=== PATIENT | female | born 1980 | race Caucasian/White ===

== ENCOUNTER 2017-06-06 05:57 | Inpatient (IN) | payer OTHER ==
[~2017-06-06] VITALS: Ht 165.1 cm; Wt 110.2 kg
[2017-06-06] MEDS ORDERED: TERBUTALINE 1 MG/ML, 1ML ONE (06:40)
[2017-06-06] MEDS ORDERED: BETAMETHASONE 6 MG/ML, 5ML IM ONE ×2 (06:40→09:00)
[2017-06-06] MEDS ORDERED: LACTATED RINGERS 1,000 ML IVBOLUS ONE (07:00)
[2017-06-06] MEDS ORDERED: TERBUTALINE 1 MG/ML, 1ML IV ONE (07:00)
[2017-06-06 07:13] LABS: BASOPHILS # (AUTO) 0.02 x10^3/uL (0-0.1); BASOPHILS % (AUTO) 0 % (0-1); EOSINOPHILS # (AUTO) 0.03 x10^3/uL (0-0.4); EOSINOPHILS % (AUTO) 0 % (1-7); LYMPHOCYTES % (AUTO) 30 % (22-44); MD NO; MEAN CORPUSCULAR HEMOGLOBIN 30.7 pg (27.0-34.8); MEAN CORPUSCULAR HGB CONC 33.7 g/dL (32.4-35.8); MEAN CORPUSCULAR VOLUME 91.3 fL (80-100); MEAN PLATELET VOLUME 7.8 fL (7.4-10.4); MONOCYTES # (AUTO) 0.66 x10^3/uL (0.2-0.8); MONOCYTES % (AUTO) 5 % (2-9); NEUTROPHILS % (AUTO) 64 % (42-75); PLATELET COUNT 412 x10^3/uL (130-400); RED BLOOD COUNT 4.09 x10^6/uL (3.82-5.3); RED CELL DISTRIBUTION WIDTH 13.3 % (9.6-15.2)
[2017-06-06] MEDS ORDERED: SODIUM CITRATE/CITRIC ACID 30 ML UDC ONE (07:16)
[2017-06-06] MEDS ORDERED: METOCLOPRAMIDE 5 MG/ML, 2ML ONE ×2 (07:16→15:40)
[2017-06-06] MEDS ORDERED: OXYTOCIN 30U/ 0.9% NaCL 500ML 0 ML ONE (07:16)
[2017-06-06] MEDS ORDERED: OXYTOCIN 30U/ 0.9% NaCL 500ML 500 ML ONE (07:19)
[2017-06-06] MEDS ORDERED: NEWBORN KIT ONE (07:19)
[2017-06-06] MEDS: SODIUM CITRATE/CITRIC ACID 30 ML UDC PO SCH ×2 (07:20→18:00)
[2017-06-06] MEDS ORDERED: FENTANYL PF 100 MCG/2ML IV PRN (07:30)
[2017-06-06] MEDS ORDERED: MEPERIDINE/PF 25MG/0.5ML IVPush PRN (07:30)
[2017-06-06] MEDS ORDERED: HYDROmorphone 1 MG/ML, 1ML IV PRN (07:30)
[2017-06-06] MEDS ORDERED: EPHEDRINE 50 MG/ML, 1ML IVPush PRN (07:30)
[2017-06-06] MEDS ORDERED: PLEASE ENTER HEIGHT AND WEIGHT MC SCH (07:30)
[2017-06-06] MEDS ORDERED: OXYcodone 5 MG/5 ML ORAL.SOL UDC PO PRN (07:30)
[2017-06-06] MEDS ORDERED: MIDAZOLAM 1 MG/ML, 2ML IV PRN (07:30)
[2017-06-06] MEDS ORDERED: PROMETHAZINE 25 MG/ML, 1ML IV PRN (07:30)
[2017-06-06] MEDS ORDERED: hydrALAzine 20 MG/ML, 1ML IV PRN (07:30)
[2017-06-06] MEDS ORDERED: HYDROcodone/APAP 7.5-325MG/15ML UDC PO PRN (07:30)
[2017-06-06] MEDS ORDERED: ONDANSETRON 2MG/ML, 2ML IVPush PRN (07:30)
[2017-06-06] MEDS ORDERED: ALBUTEROL SULFATE 2.5 MG/3 ML NPPB PRN (07:30)
[2017-06-06] MEDS ORDERED: LABETALOL 5MG/ML, 20ML IV PRN (07:30)
[2017-06-06] MEDS ORDERED: OXYTOCIN 10 UNITS/ML, 1ML ONE (07:35)
[2017-06-06] MEDS ORDERED: DEXAMETHASONE 4 MG/ML, 1ML ONE (07:35)
[2017-06-06] MEDS ORDERED: CEFAZOLIN 1,000 MG ONE (07:35)
[2017-06-06] MEDS ORDERED: EPHEDRINE 50 MG/ML, 1ML ONE (07:35)
[2017-06-06] MEDS ORDERED: PHENYLEPHRINE 10 MG/ML ONE (07:36)
[2017-06-06] MEDS ORDERED: SODIUM BICARBONATE 1 MEQ/ML, 50ML VIAL ONE (07:36)
[2017-06-06] MEDS ORDERED: ONDANSETRON 2MG/ML, 2ML ONE (07:36)
[2017-06-06] MEDS ORDERED: FENTANYL PF 100 MCG/2ML ONE ×3 (07:36→11:25)
[2017-06-06] MEDS ORDERED: KETOROLAC 30 MG/1 ML ONE (07:36)
[2017-06-06 08:52] LABS: ALANINE AMINOTRANSFERASE 17 U/L (12-78); ALBUMIN 1.9 g/dL (3.4-5.0); ANION GAP 11 mmol/L (5-15); CALCIUM 7.7 mg/dL (8.5-10.1); CHLORIDE 109 mmol/L (98-107)
[2017-06-06 08:55] LABS: ALKALINE PHOSPHATASE 64 U/L (45-117); BILIRUBIN,TOTAL 0.1 mg/dL (0.2-1.0); TOTAL PROTEIN 4.9 g/dL (6.4-8.2)
[2017-06-06 09:21] LABS: BASOPHILS # (AUTO) 0.04 x10^3/uL (0-0.1); BASOPHILS % (AUTO) 0 % (0-1); EOSINOPHILS # (AUTO) 0.03 x10^3/uL (0-0.4); EOSINOPHILS % (AUTO) 0 % (1-7); HEMOGRAM NOTE RECHECKED; LYMPHOCYTES # (AUTO) 3.23 x10^3/uL (1-3.4); LYMPHOCYTES % (AUTO) 18 % (22-44); MD NO; MEAN CORPUSCULAR HEMOGLOBIN 30.6 pg (27.0-34.8); MEAN CORPUSCULAR VOLUME 92.8 fL (80-100); MEAN PLATELET VOLUME 7.7 fL (7.4-10.4); MONOCYTES # (AUTO) 0.82 x10^3/uL (0.2-0.8); MONOCYTES % (AUTO) 5 % (2-9); NEUTROPHILS # (AUTO) 13.92 x10^3/uL (1.8-6.8); NEUTROPHILS % (AUTO) 77 % (42-75); PLATELET COUNT 380 x10^3/uL (130-400); RED BLOOD COUNT 3.44 x10^6/uL (3.82-5.3); RED CELL DISTRIBUTION WIDTH 13.3 % (9.6-15.2)
[2017-06-06 09:23] LABS: D-DIMER (DIC) 9.65 ug/mlFEU (0.00-0.52); PROTIME 9.7 Seconds (9.6-11.5)
[2017-06-06] MEDS ORDERED: ROCURONIUM 10MG/ML,5ML ONE (09:38)
[2017-06-06] MEDS ORDERED: HYDROmorphone 2 MG/ML, 1ML ONE (09:42)
[2017-06-06] MEDS ORDERED: OXYcodone 5 MG/5 ML ORAL.SOL UDC ONE (10:48)
[2017-06-06] MEDS ORDERED: OXYTOCIN 30U/ 0.9% NaCL 500ML 500 ML IV SCH (11:39)
[2017-06-06] MEDS ORDERED: LACTATED RINGERS 1,000 ML IV SCH ×2 (11:39)
[2017-06-06] MEDS: HETASTARCH 0.9 % 500 ML IV SCH ×3 (11:50→17:00)
[2017-06-06] MEDS ORDERED: HETASTARCH 0.9 % 500 ML ONE (11:53)
[2017-06-06] MEDS ORDERED: OXYcodone/APAP 5/325MG TABLET PO PRN (12:00)
[2017-06-06] MEDS ORDERED: morphine SULFATE 10 MG/ML, 1ML IVPush PRN (12:00)
[2017-06-06] MEDS ORDERED: ACETAMINOPHEN 325 MG TABLET PO PRN (12:00)
[2017-06-06 12:05] LABS: MEAN CORPUSCULAR HEMOGLOBIN 31.1 pg (27.0-34.8); MEAN CORPUSCULAR VOLUME 91.5 fL (80-100); PLATELET COUNT 384 x10^3/uL (130-400); RED BLOOD COUNT 4.16 x10^6/uL (3.82-5.3); RED CELL DISTRIBUTION WIDTH 14.4 % (9.6-15.2)
[2017-06-06 12:13] LABS: D-DIMER 3.6 ug/mlFEU (0.00-0.52); INTERNATIONAL NORMALIZED RATIO 0.96 (0.93-1.1); PROTHROMBIN TIME 9.9 Seconds (9.6-11.5)
[2017-06-06 12:23] LABS: MD YES
[2017-06-06 12:25] LABS: BAND#(MANUAL) 2.07 x10^3/uL; BANDS%(MANUAL) 11 % (0-7); LYMPH#(MANUAL) 2.26 x10^3/uL (1-3.4); LYMPHS% (MANUAL) 12 % (22-44); MONOS#(MANUAL) 0.56 x10^3/uL (0.3-2.7); MONOS% (MANUAL) 3 % (2-9); SEG#(MANUAL) 13.91 x10^3/uL (1.8-6.8); SEGS% (MANUAL) 74 % (42-75)
[2017-06-06 12:26] LABS: <PLATELET ESTIMATE> ADEQUATE; <PLT MORPHOLOGY> NORMAL PLT MORPH; <RBC MORPHOLOGY> NORMAL
[2017-06-06] MEDS ORDERED: METOCLOPRAMIDE 5 MG/ML, 2ML IVPush ONE (13:00)
[2017-06-06] MEDS: morphine SULFATE 10 MG/ML, 1ML IVPush PRN ×3 (13:15→23:42)
[2017-06-06 13:30] VITALS: BP 80/60
[2017-06-06 14:00] VITALS: BP 82/62
[2017-06-06] MEDS ORDERED: SODIUM CHLORIDE 0.9% 1,000 ML IV SCH (14:00)
[2017-06-06] MEDS: DOCUSATE 100 MG CAPSULE PO PRN (14:10)
[2017-06-06] MEDS: IBUPROFEN 600 MG TABLET PO PRN (14:10)
[2017-06-06 14:30] VITALS: BP 82/66
[2017-06-06 15:00] VITALS: BP 92/64
[2017-06-06 15:04] LABS: HEMOGRAM NOTE RECHECKED; MEAN CORPUSCULAR HGB CONC 33.8 g/dL (32.4-35.8); MEAN CORPUSCULAR VOLUME 91.6 fL (80-100); PLATELET COUNT 346 x10^3/uL (130-400); RED BLOOD COUNT 2.89 x10^6/uL (3.82-5.3); RED CELL DISTRIBUTION WIDTH 14.1 % (9.6-15.2)
[2017-06-06] MEDS ORDERED: PREN1TAB60 PO (15:04)
[2017-06-06 15:22] LABS: BASOPHILS # (AUTO) 0.05 x10^3/uL (0-0.1); BASOPHILS % (AUTO) 0 % (0-1); EOSINOPHILS # (AUTO) 0.01 x10^3/uL (0-0.4); EOSINOPHILS % (AUTO) 0 % (1-7); LYMPHOCYTES # (AUTO) 2.17 x10^3/uL (1-3.4); LYMPHOCYTES % (AUTO) 12 % (22-44); MD SCAN; MONOCYTES # (AUTO) 0.75 x10^3/uL (0.2-0.8); MONOCYTES % (AUTO) 4 % (2-9); NEUTROPHILS # (AUTO) 15.73 x10^3/uL (1.8-6.8); NEUTROPHILS % (AUTO) 84 % (42-75)
[2017-06-06] MEDS ORDERED: SODIUM CHLORIDE 0.9% 1,000ML IVBOLUS ONE (15:30)
[2017-06-06] MEDS ORDERED: GLYCOPYRROLATE 0.2MG/1ML, 5ML ONE (15:40)
[2017-06-06] MEDS ORDERED: PROPOFOL 10 MG/ML, 20ML ONE (15:40)
[2017-06-06] MEDS ORDERED: SUCCINYLCHOLINE 20 MG/ML, 10ML ONE (15:40)
[2017-06-06] MEDS ORDERED: NEOSTIGMINE 1 MG/ML, 10ML ONE (15:40)
[2017-06-06 16:24] LABS: MEAN CORPUSCULAR HEMOGLOBIN 30.9 pg (27.0-34.8); MEAN CORPUSCULAR HGB CONC 33.7 g/dL (32.4-35.8); MEAN CORPUSCULAR VOLUME 91.8 fL (80-100); MEAN PLATELET VOLUME 7.9 fL (7.4-10.4); PLATELET COUNT 332 x10^3/uL (130-400); RED BLOOD COUNT 2.66 x10^6/uL (3.82-5.3); RED CELL DISTRIBUTION WIDTH 14.3 % (9.6-15.2)
[2017-06-06 16:33] LABS: INTERNATIONAL NORMALIZED RATIO 0.97 (0.93-1.1)
[2017-06-06 16:34] LABS: ALBUMIN 1.3 g/dL (3.4-5.0); CALCIUM 6.9 mg/dL (8.5-10.1)
[2017-06-06 17:08] LABS: MD YES
[2017-06-06 17:21] LABS: BAND#(MANUAL) 3.94 x10^3/uL; BANDS%(MANUAL) 24 % (0-7); LYMPH#(MANUAL) 1.15 x10^3/uL (1-3.4); LYMPHS% (MANUAL) 7 % (22-44); METAMYELOCYTES# (MANUAL) 0.16 x10^3/uL (0-0); METAMYELOCYTES% (MANUAL) 1 % (0-1); MONOS#(MANUAL) 1.15 x10^3/uL (0.3-2.7); MONOS% (MANUAL) 7 % (2-9); SEGS% (MANUAL) 61 % (42-75)
[2017-06-06 17:22] LABS: <PLATELET ESTIMATE> ADEQUATE; <PLT MORPHOLOGY> NORMAL PLT MORPH; <RBC MORPHOLOGY> NORMAL
[2017-06-06] MEDS ORDERED: MAGNESIUM SULFATE PMX 2GM/50ML 50 ML IV ONE ×2 (18:00→22:00)
[2017-06-06] MEDS ORDERED: ALBUMIN HUMAN 5% 500 ML IV ONE (18:30)
[2017-06-06] MEDS ORDERED: POTASSIUM CHLORIDE 20 MEQ in SODIUM CHLORIDE 0.9% 250 ML IV ONE (20:00)
[2017-06-06 20:38] LABS: INTERNATIONAL NORMALIZED RATIO 0.93 (0.93-1.1); PROTHROMBIN TIME 9.6 Seconds (9.6-11.5)
[2017-06-06 20:44] LABS: MEAN CORPUSCULAR HGB CONC 33.9 g/dL (32.4-35.8); MEAN CORPUSCULAR VOLUME 91.4 fL (80-100); MEAN PLATELET VOLUME 7.9 fL (7.4-10.4); PLATELET COUNT 297 x10^3/uL (130-400); RED BLOOD COUNT 2.48 x10^6/uL (3.82-5.3); RED CELL DISTRIBUTION WIDTH 14.3 % (9.6-15.2)
[2017-06-06 20:47] LABS: HEMOGRAM NOTE RECHECKED
[2017-06-06 20:56] LABS: MD YES
[2017-06-06 20:58] LABS: <RBC MORPHOLOGY> NORMAL; BAND#(MANUAL) 3.27 x10^3/uL; BANDS%(MANUAL) 19 % (0-7); LYMPH#(MANUAL) 1.72 x10^3/uL (1-3.4); LYMPHS% (MANUAL) 10 % (22-44); MONOS#(MANUAL) 1.03 x10^3/uL (0.3-2.7); MONOS% (MANUAL) 6 % (2-9); SEGS% (MANUAL) 65 % (42-75)
[2017-06-06 21:01] LABS: <PLATELET ESTIMATE> ADEQUATE; <PLT MORPHOLOGY> NORMAL PLT MORPH
[2017-06-07 00:17] LABS: MEAN CORPUSCULAR HEMOGLOBIN 31.3 pg (27.0-34.8); MEAN CORPUSCULAR HGB CONC 34.3 g/dL (32.4-35.8); MEAN CORPUSCULAR VOLUME 91.3 fL (80-100); MEAN PLATELET VOLUME 8.1 fL (7.4-10.4); PLATELET COUNT 274 x10^3/uL (130-400); RED CELL DISTRIBUTION WIDTH 14.3 % (9.6-15.2)
[2017-06-07 00:37] LABS: BASOPHILS # (AUTO) 0.03 x10^3/uL (0-0.1); BASOPHILS % (AUTO) 0 % (0-1); EOSINOPHILS % (AUTO) 0 % (1-7); LYMPHOCYTES # (AUTO) 2.23 x10^3/uL (1-3.4); LYMPHOCYTES % (AUTO) 18 % (22-44); MD SCAN; MONOCYTES # (AUTO) 0.88 x10^3/uL (0.2-0.8); MONOCYTES % (AUTO) 7 % (2-9); NEUTROPHILS # (AUTO) 9.39 x10^3/uL (1.8-6.8); NEUTROPHILS % (AUTO) 75 % (42-75)
[2017-06-07 00:58] VITALS: BP 137/63
[2017-06-07 01:16] VITALS: BP 142/65
[2017-06-07 02:54] VITALS: BP 143/56
[2017-06-07] MEDS: morphine SULFATE 10 MG/ML, 1ML IVPush PRN ×3 (03:49→13:07)
[2017-06-07 04:00] VITALS: BP 162/68
[2017-06-07 06:08] LABS: BASOPHILS # (AUTO) 0.01 x10^3/uL (0-0.1); BASOPHILS % (AUTO) 0 % (0-1); EOSINOPHILS % (AUTO) 0 % (1-7); LYMPHOCYTES # (AUTO) 2.67 x10^3/uL (1-3.4); LYMPHOCYTES % (AUTO) 22 % (22-44); MD NO; MEAN CORPUSCULAR HEMOGLOBIN 31.3 pg (27.0-34.8); MEAN CORPUSCULAR HGB CONC 34.3 g/dL (32.4-35.8); MEAN CORPUSCULAR VOLUME 91.5 fL (80-100); MEAN PLATELET VOLUME 7.5 fL (7.4-10.4); MONOCYTES # (AUTO) 1.16 x10^3/uL (0.2-0.8); MONOCYTES % (AUTO) 10 % (2-9); NEUTROPHILS % (AUTO) 68 % (42-75); PLATELET COUNT 221 x10^3/uL (130-400); RED BLOOD COUNT 2.59 x10^6/uL (3.82-5.3); RED CELL DISTRIBUTION WIDTH 14.2 % (9.6-15.2)
[2017-06-07 06:16] LABS: ALBUMIN 1.9 g/dL (3.4-5.0); ANION GAP 6 mmol/L (5-15); CALCIUM 7.7 mg/dL (8.5-10.1); CHLORIDE 110 mmol/L (98-107); CREATININE 0.41 mg/dL (0.55-1.02)
[2017-06-07 06:24] LABS: INTERNATIONAL NORMALIZED RATIO 0.91 (0.93-1.1); PROTHROMBIN TIME 9.4 Seconds (9.6-11.5)
[2017-06-07] MEDS ORDERED: BETAMETHASONE 6 MG/ML, 5ML IM ONE (07:00)
[2017-06-07] MEDS: PRENATAL VIT/IRON/FA 1 EACH TABLET PO SCH (08:25)
[2017-06-07] MEDS ORDERED: SODIUM CHLORIDE 0.9% 1,000 ML IV SCH ×2 (14:00)
[2017-06-07] MEDS: OXYcodone/APAP 5/325MG TABLET PO PRN ×2 (16:02→17:49)
[2017-06-07] MEDS: ONDANSETRON 2MG/ML, 2ML IV PRN (16:02)
[2017-06-07] MEDS: DOCUSATE 100 MG CAPSULE PO PRN (17:50)
[2017-06-08] MEDS: ONDANSETRON 2MG/ML, 2ML IV PRN ×2 (01:16→16:57)
[2017-06-08] MEDS: morphine SULFATE 10 MG/ML, 1ML IVPush PRN ×2 (01:16→08:10)
[2017-06-08 05:04] LABS: MEAN CORPUSCULAR HEMOGLOBIN 31.4 pg (27.0-34.8); MEAN CORPUSCULAR HGB CONC 34.2 g/dL (32.4-35.8); MEAN CORPUSCULAR VOLUME 91.8 fL (80-100); MEAN PLATELET VOLUME 8.1 fL (7.4-10.4); PLATELET COUNT 259 x10^3/uL (130-400); RED BLOOD COUNT 2.45 x10^6/uL (3.82-5.3); RED CELL DISTRIBUTION WIDTH 14.4 % (9.6-15.2)
[2017-06-08 05:08] LABS: ANION GAP 6 mmol/L (5-15); CALCIUM 7.7 mg/dL (8.5-10.1); CHLORIDE 108 mmol/L (98-107)
[2017-06-08 05:09] LABS: CREATININE 0.34 mg/dL (0.55-1.02)
[2017-06-08 05:45] LABS: MD YES
[2017-06-08 05:46] LABS: BAND#(MANUAL) 0.57 x10^3/uL; BANDS%(MANUAL) 4 % (0-7); BASOS#(MANUAL) 0.14 x10^3/uL (0-0.1); BASOS% (MANUAL) 1 % (0-1); LYMPH#(MANUAL) 2.98 x10^3/uL (1-3.4); LYMPHS% (MANUAL) 21 % (22-44); MONOS#(MANUAL) 0.85 x10^3/uL (0.3-2.7); MONOS% (MANUAL) 6 % (2-9); SEG#(MANUAL) 9.66 x10^3/uL (1.8-6.8); SEGS% (MANUAL) 68 % (42-75)
[2017-06-08 05:47] LABS: <PLATELET ESTIMATE> ADEQUATE; <PLT MORPHOLOGY> NORMAL PLT MORPH; POLYCHROMASIA 1+
[2017-06-08 06:38] VITALS: BP 126/62
[2017-06-08] MEDS: DOCUSATE 100 MG CAPSULE PO PRN (09:00)
[2017-06-08] MEDS: IBUPROFEN 600 MG TABLET PO PRN (09:00)
[2017-06-08] MEDS: PRENATAL VIT/IRON/FA 1 EACH TABLET PO SCH (09:00)
[2017-06-08 11:46] LABS: MICROSCOPIC AUTO
[2017-06-08] MEDS: SIMETHICONE 80 MG CHEW TAB PO SCH ×3 (13:13→21:00)
[2017-06-08] MEDS: OXYcodone/APAP 5/325MG TABLET PO PRN (13:59)
[2017-06-08 18:02] VITALS: BP 133/77
[2017-06-08 19:35] VITALS: BP 131/78
[2017-06-08] MEDS ORDERED: BISACODYL 10 MG SUPP PR PRN (21:00)
[2017-06-08] MEDS ORDERED: METOCLOPRAMIDE 5 MG/ML, 2ML IVPush PRN (21:00)
[2017-06-09 02:30] VITALS: BP 125/72
[2017-06-09] MEDS: morphine SULFATE 10 MG/ML, 1ML IVPush PRN ×3 (03:11→22:02)
[2017-06-09 05:39] LABS: BASOPHILS # (AUTO) 0.03 x10^3/uL (0-0.1); BASOPHILS % (AUTO) 0 % (0-1); EOSINOPHILS # (AUTO) 0.01 x10^3/uL (0-0.4); EOSINOPHILS % (AUTO) 0 % (1-7); LYMPHOCYTES # (AUTO) 2.56 x10^3/uL (1-3.4); LYMPHOCYTES % (AUTO) 18 % (22-44); MD NO; MEAN CORPUSCULAR HEMOGLOBIN 31.3 pg (27.0-34.8); MEAN CORPUSCULAR HGB CONC 33.8 g/dL (32.4-35.8); MEAN CORPUSCULAR VOLUME 92.5 fL (80-100); MEAN PLATELET VOLUME 7.1 fL (7.4-10.4); MONOCYTES # (AUTO) 0.69 x10^3/uL (0.2-0.8); MONOCYTES % (AUTO) 5 % (2-9); NEUTROPHILS # (AUTO) 11.14 x10^3/uL (1.8-6.8); NEUTROPHILS % (AUTO) 77 % (42-75); PLATELET COUNT 363 x10^3/uL (130-400); RED BLOOD COUNT 2.49 x10^6/uL (3.82-5.3); RED CELL DISTRIBUTION WIDTH 14.3 % (9.6-15.2)
[2017-06-09 05:56] LABS: ANION GAP 7 mmol/L (5-15); CALCIUM 7.8 mg/dL (8.5-10.1); CHLORIDE 106 mmol/L (98-107)
[2017-06-09 05:58] LABS: CREATININE 0.29 mg/dL (0.55-1.02)
[2017-06-09] MEDS: SIMETHICONE 80 MG CHEW TAB PO SCH ×4 (06:00→21:00)
[2017-06-09 07:30] VITALS: BP 143/79
[2017-06-09] MEDS: PRENATAL VIT/IRON/FA 1 EACH TABLET PO SCH (09:00)
[2017-06-09 12:00] VITALS: BP 114/71
[2017-06-09 16:30] VITALS: BP 122/74
[2017-06-09] MEDS: D5%-LACTATED RINGERS 1,000 ML IV SCH (18:02)
[2017-06-09 19:20] VITALS: BP 122/75
[2017-06-10] MEDS: D5%-LACTATED RINGERS 1,000 ML IV SCH ×2 (00:30→00:35)
[2017-06-10 00:50] VITALS: BP 127/72
[2017-06-10] MEDS: morphine SULFATE 10 MG/ML, 1ML IVPush PRN (05:00)
[2017-06-10 05:10] VITALS: BP 117/74
[2017-06-10 05:35] LABS: CHLORIDE 110 mmol/L (98-107)
[2017-06-10 05:40] LABS: MEAN CORPUSCULAR HEMOGLOBIN 31.7 pg (27.0-34.8); MEAN CORPUSCULAR HGB CONC 34.2 g/dL (32.4-35.8); MEAN CORPUSCULAR VOLUME 92.6 fL (80-100); MEAN PLATELET VOLUME 6.9 fL (7.4-10.4); PLATELET COUNT 412 x10^3/uL (130-400); RED CELL DISTRIBUTION WIDTH 14.3 % (9.6-15.2)
[2017-06-10 05:55] LABS: ALANINE AMINOTRANSFERASE 32 U/L (12-78); ALBUMIN 1.7 g/dL (3.4-5.0); ALKALINE PHOSPHATASE 57 U/L (45-117); ANION GAP 7 mmol/L (5-15); BILIRUBIN,TOTAL 0.5 mg/dL (0.2-1.0); CALCIUM 7.5 mg/dL (8.5-10.1); CREATININE 0.31 mg/dL (0.55-1.02); TOTAL PROTEIN 4.3 g/dL (6.4-8.2)
[2017-06-10] MEDS: SIMETHICONE 80 MG CHEW TAB PO SCH ×4 (06:00→21:00)
[2017-06-10 06:28] LABS: MD SCAN
[2017-06-10 06:29] LABS: BASOPHILS # (AUTO) 0.03 x10^3/uL (0-0.1); BASOPHILS % (AUTO) 0 % (0-1); EOSINOPHILS # (AUTO) 0.03 x10^3/uL (0-0.4); EOSINOPHILS % (AUTO) 0 % (1-7); LYMPHOCYTES # (AUTO) 2.61 x10^3/uL (1-3.4); LYMPHOCYTES % (AUTO) 23 % (22-44); MONOCYTES # (AUTO) 0.75 x10^3/uL (0.2-0.8); MONOCYTES % (AUTO) 7 % (2-9); NEUTROPHILS # (AUTO) 7.87 x10^3/uL (1.8-6.8); NEUTROPHILS % (AUTO) 70 % (42-75)
[2017-06-10 07:15] VITALS: BP 127/70
[2017-06-10 19:23] LABS: CLOSTRIDIUM DIFFICILE ANTIGEN NEGATIVE; CLOSTRIDIUM DIFFICILE TOXIN NEGATIVE (Negative)
[2017-06-10 20:20] VITALS: BP 123/72
[2017-06-10] MEDS: PRENATAL VIT/IRON/FA 1 EACH TABLET PO SCH (21:45)
[2017-06-10] MEDS: OXYcodone/APAP 5/325MG TABLET PO PRN (21:45)
[2017-06-11] MEDS: OXYcodone/APAP 5/325MG TABLET PO PRN ×3 (02:55→19:42)
[2017-06-11 05:34] LABS: CHLORIDE 110 mmol/L (98-107)
[2017-06-11 05:35] LABS: ALANINE AMINOTRANSFERASE 27 U/L (12-78); ALBUMIN 1.7 g/dL (3.4-5.0); ANION GAP 7 mmol/L (5-15); CALCIUM 7.4 mg/dL (8.5-10.1); CREATININE 0.29 mg/dL (0.55-1.02)
[2017-06-11 05:37] LABS: ALKALINE PHOSPHATASE 55 U/L (45-117); BILIRUBIN,TOTAL 0.6 mg/dL (0.2-1.0); TOTAL PROTEIN 4.5 g/dL (6.4-8.2)
[2017-06-11 05:52] LABS: MEAN CORPUSCULAR HEMOGLOBIN 31.6 pg (27.0-34.8); MEAN CORPUSCULAR HGB CONC 34.3 g/dL (32.4-35.8); MEAN CORPUSCULAR VOLUME 92.2 fL (80-100); MEAN PLATELET VOLUME 6.4 fL (7.4-10.4); PLATELET COUNT 517 x10^3/uL (130-400); RED BLOOD COUNT 2.44 x10^6/uL (3.82-5.3); RED CELL DISTRIBUTION WIDTH 13.9 % (9.6-15.2)
[2017-06-11] MEDS: SIMETHICONE 80 MG CHEW TAB PO SCH ×5 (06:00→21:00)
[2017-06-11 06:10] LABS: MD YES
[2017-06-11 06:11] LABS: <PLATELET ESTIMATE> INCREASED; <PLT MORPHOLOGY> NORMAL PLT MORPH; ANISOCYTOSIS 1+; EOS#(MANUAL) 0.24 x10^3/uL (0.0-0.4); EOS% (MANUAL) 2 % (1-7); LYMPH#(MANUAL) 2.16 x10^3/uL (1-3.4); LYMPHS% (MANUAL) 18 % (22-44); MONOS#(MANUAL) 0.96 x10^3/uL (0.3-2.7); MONOS% (MANUAL) 8 % (2-9); SEG#(MANUAL) 8.64 x10^3/uL (1.8-6.8); SEGS% (MANUAL) 72 % (42-75); TOXIC GRAN 1+
[2017-06-11 07:25] VITALS: BP 122/77
[2017-06-11] MEDS: PRENATAL VIT/IRON/FA 1 EACH TABLET PO SCH (09:00)
[2017-06-11 12:03] VITALS: BP 124/74
[2017-06-11 19:35] VITALS: BP 120/69
[2017-06-11 23:57] VITALS: BP 120/75
[2017-06-12] MEDS: OXYcodone/APAP 5/325MG TABLET PO PRN (03:57)
[2017-06-12 04:01] VITALS: BP 120/75
[2017-06-12] MEDS: SIMETHICONE 80 MG CHEW TAB PO SCH (05:50)
[2017-06-12] MEDS ORDERED: OXYC-302 PO (05:55)
[2017-06-12] MEDS ORDERED: IBUP-1222 PO (05:55)
[2017-06-12] MEDS ORDERED: FERR324T8 PO (06:01)
[2017-06-12] MEDS ORDERED: SENN-52 PO (06:01)
[2017-06-12] MEDS ORDERED: SIME80TA16 PO (06:02)
[2017-06-12 08:11] VITALS: BP 102/68
[2017-06-12] MEDS ORDERED: OXYC-307 PO (09:08)
[2017-06-12] MEDS ORDERED: DIPH,PERTUSS(ACELL),TET VAC/PF NC IM-VACC ONE ×2 (09:37→10:00)
== END 2017-06-12 12:34 | disposition home or self-care (01) | DRG 765 ==
LOC: LDOP 05:57 → LDIP 06:42 → OBSVTOIN 07:15 → 2NW 12:41 → CCU 15:15 → 2NW 06-08 10:55
PROVIDERS: ADMIT Obstetrics & Gynecology; ATTEND Obstetrics & Gynecology
PROC: 10D00Z1 Extraction of Products of Conception, Low, Open Approach (ICD-10-PCS; principal; 2017-06-06)
PROC: 0UT50ZZ Resection of Right Fallopian Tube, Open Approach (ICD-10-PCS; 2017-06-06)
PROC: 0UT00ZZ Resection of Right Ovary, Open Approach (ICD-10-PCS; 2017-06-06)
PROC: 30233N1 Transfusion of Nonautologous Red Blood Cells into Peripheral Vein, Percutaneous Approach (ICD-10-PCS; 2017-06-06)
DX: O30.043 Twin pregnancy, dichorionic/diamniotic, third trimester (principal); K66.1 Hemoperitoneum; O60.14X0 Preterm labor third trimester with preterm delivery third trimester, not applicable or unspecified; Z37.2 Twins, both liveborn; O34.211 Maternal care for low transverse scar from previous cesarean delivery; O90.0 Disruption of cesarean delivery wound; O69.81X0 Labor and delivery complicated by cord around neck, without compression, not applicable or unspecified; O76 Abnormality in fetal heart rate and rhythm complicating labor and delivery; Z90.710 Acquired absence of both cervix and uterus; Z3A.34 34 weeks gestation of pregnancy
CPT/HCPCS: 36415; 80048; 80053; 81001; 82040; 82310; 82803; 83735; 85014; 85018; 85025; 85049; 85379; 85384; 85610; 85730; 86850; 86900; 86923; 87081; 87086; 87324; 88305; 88307; 90715; J0690; J0702; J1100; J1170; J1885; J2405; J2704; J2710; J3010; J3480; J3490; P9045; G0378; J0330; J2270; J2370; J2590; J2765; J3105; J3475; J7030; J7050; J7120; J7121; P9016